=== PATIENT | female | born 1985 | race African-American/Black ===

== ENCOUNTER 2016-05-29 15:06 | Inpatient (IN) ==
[2016-05-29] MEDS ORDERED: ONDANSETRON 4 MG/2 ML VIAL IV PRN ×2 (15:31→19:50)
[2016-05-29] MEDS ORDERED: BUTORPHANOL 2 MG/ML VIAL IV PRN (15:31)
[2016-05-29] MEDS ORDERED: INFLUENZA VIRUS VACCINE 0.5 ML SYRINGE IM ONE (15:35)
[2016-05-29] MEDS: LACTATED RINGERS 1,000 ML IV SCH ×2 (15:40→17:04)
[2016-05-29] MEDS ORDERED: OXYTOCIN/LR 20 UNIT/1,000 ML BAG IV SCH (16:00)
[2016-05-29] MEDS ORDERED: PROMETHAZINE 25 MG/1 ML VIAL IM ONE (16:15)
[2016-05-29] MEDS ORDERED: hydrOXYzine HCL 25 MG/1 ML VIAL IM PRN (16:15)
[2016-05-29] MEDS ORDERED: diphenhydrAMINE 50 MG/1 ML VIAL IV PRN ×2 (16:15)
[2016-05-29] MEDS ORDERED: fentaNYL 2 MCG/ROPIV 0.2% EPID 150 ML EPIDURAL SCH (16:15)
[2016-05-29] MEDS ORDERED: FAMOTIDINE 20 MG/2 ML VIAL IV ONE (16:15)
[2016-05-29] MEDS ORDERED: ePHEDrine 50 MG/ML AMP IV PRN (16:15)
[2016-05-29 16:25] LABS: Basophils % 0.3 % (0.0-0.8); Eosinophils % 0.4 % (0.00-10.9); Hematocrit 31.9 VOL% (35.7-47.0); Hemoglobin 11.3 GM/DL (12.0-16.0); Immature Granulocytes % 2.3 %; Immature Granulocytes Absolute 0.24 #; Lymphocytes # 1.6 10*3/uL (1.4-4.0); Lymphocytes % 15.6 % (21.3-54.2); Mean Corpuscular HGB Conc 35.4 GM/DL (32-36); Mean Corpuscular Hemoglobin 32 PG (27-34); Mean Corpuscular Volume 88.9 FL (87-102); Mean Platelet Volume 10.2 FL (9.6-12.0); Monocytes # 0.8 10*3/uL (0.11-0.8); Monocytes % 7.3 % (1.7-12.7); Neutrophils # 7.8 10*3/uL (1.4-7.4); Neutrophils % 74.1 % (38.7-73.9); Platelet Count 268 10*3/uL (130-400); Red Blood Count 3.59 10*6/uL (3.8-5.5); Red Cell Distribution Width 14.1 % (9.3-17.3); White Blood Count 10.5 10*3/uL (4.5-13.71)
[2016-05-29] MEDS ORDERED: CITRIC ACID/SODIUM CITRATE 30 ML UDCUP PO ONE (16:30)
[2016-05-29 16:53] LABS: Alanine Aminotransferase 13 U/L (13-56); Albumin 2.8 G/DL (3.4-5.0); Alkaline Phosphatase 223 U/L (45-117); Aspartate Amino Transferase 18 U/L (0-37); Bilirubin,Total < 0.39 MG/DL (0.2-1.0); Blood Urea Nitrogen 8 MG/DL (7-18); Calcium 8.7 MG/DL (8.5-10.1); Glucose 89 MG/DL (74-106); Osmolality,Calculated 277.3 MOS/KG (273-304); Potassium 3.9 MMOL/L (3.5-5.1); Sodium 141 MMOL/L (136-145); Total Protein 6.6 G/DL (6.4-8.3); Uric Acid 4.2 MG/DL (2.6-6.0)
[2016-05-29] MEDS ORDERED: LIDOCAINE 1% 50 ML VIAL ONE (19:03)
[2016-05-29] MEDS ORDERED: miSOPROStol 200 MCG TABLET ONE (19:03)
[2016-05-29] MEDS ORDERED: BUTORPHANOL 1 MG/ML VIAL ONE (19:03)
[2016-05-29] MEDS ORDERED: METHYLERGONOVINE 0.2 MG/1 ML AMP ONE (19:04)
[2016-05-29] MEDS ORDERED: ACETAMINOPHEN 325 MG TABLET PO PRN (19:50)
[2016-05-29] MEDS ORDERED: MEASLES/MUMPS/RUBELLA VACCINE 0.5 ML VIAL SUBCUT ONE (19:50)
[2016-05-29] MEDS ORDERED: OXYTOCIN/LR 20 UNIT/1,000 ML BAG IV ONE (19:50)
[2016-05-29] MEDS ORDERED: HYDROCORTISONE 2.5% RECTAL CREAM 30 GM TUBE TOP PRN (19:50)
[2016-05-29] MEDS ORDERED: BISACODYL 10 MG SUPP RECTAL PRN (19:50)
[2016-05-29] MEDS ORDERED: BENZOCAINE 20%/MENTHOL 0.5% SPRAY 56 GM CAN TOP PRN (19:50)
[2016-05-29] MEDS ORDERED: DIPH/TET/ACEL PERT BOOSTER VACCINE 0.5 ML VIAL IM ONE (19:50)
[2016-05-29] MEDS ORDERED: WITCH HAZEL PADS 100/JAR TOP PRN (19:50)
[2016-05-29] MEDS ORDERED: RHO(D) IMMUNE GLOBULIN 300 MCG SYRINGE IM ONE (19:50)
[2016-05-29] MEDS ORDERED: LANOLIN 50% CREAM 0.3 OZ TUBE TOP PRN (19:50)
[2016-05-29] MEDS ORDERED: oxyCODONE/ACETAMINOPHEN 5-325 MG TABLET PO PRN ×2 (19:50)
--- NOTE | 2016-05-29 19:53 | History and Physical Update ---
History and Physical Update - Dictation Physical: refer to scanned H&P - Physical Exam Mental Status: alert and oriented Heart: regular rate and rhythm Lung: clear to auscultation Abdomen: within normal limits Vitals: within normal limits (39 wks for induction. )
--- NOTE | 2016-05-29 20:00 | Discharge Summary ---
Hospital Course - Hospital Course Hospital Course: Pt admitted for induction at 39 wks. She delivered without complication. Discharge Plan - Discharge Data Disposition: Disch To Home/Self Care Condition at Discharge: Stable Discharge Diet: regular diet Activity: other (pelvic rest x 6 wks) Hygiene: may shower Weight Bearing at Discharge: full weight bearing Driving: no restrictions (if not taking narcotics) Contact your physician if you experience:: fever over 101, Difficulty voiding, Redness or swelling, Nausea/Vomiting, Shortness of breath, Bleeding, pain uncontrolled by pain medications - Discharge Medications New Ibuprofen Tab [Motrin Tab] 800 mg PO Q6H PRN #30 tablet PRN Reason: Pain Moderate (4-7) oxyCODONE/ACETAMINOPHEN 5-325 [Percocet 5-325] 1 tablet PO Q6H PRN #30 tablet PRN Reason: Pain Severe (8-10) No Action Pnv No.122/Iron/Folic Acid [ Multi Tablet] 1 tablet PO DAILY Aspirin [Ecotrin] 81 mg PO DAILY - Follow Up or Referral Follow Up: Lissette Castro DO [Physician] - (6 wks) - Forms/Instructions Exam - Constitutional Vitals: Period Temp Pulse Resp BP Sys/Bustillo Pulse Ox Last 24 Hr 98.4 F 85 18 109/56 General appearance: normal weight, no acute distress - Head Head exam: Present: normal inspection, normocephalic - Eye Eye exam: Present: EOMI - Respiratory Respiratory exam: Present: clear to auscultation bilaterally - Cardiovascular Cardiovascular exam: Present: regular rate and rhythm - GI/Abdominal GI/Abdominal exam: Present: soft (fundus firm, nontender) - Extremities Exam Extremities exam: Present: normal inspection - Neurological Exam Neurological exam: Present: alert, oriented X3 - Psychiatric Psychiatric exam: Present: normal affect, normal mood - Skin Skin exam: Present: normal color, warm Discharge Results Procedures and tests throughout hospitalization: Pending Orders 05/30/16 04:00 Comp Blood Count Auto Diff IN AM Labs on day of discharge: Labs from last 24 hours 05/29/16 05/29/16 05/29/16 16:00 16:00 16:00 WBC 10.5 RBC 3.59 L Hgb 11.3 L Hct 31.9 L MCV 88.9 MCH 32 MCHC 35.4 RDW 14.1 Plt Count 268 MPV 10.2 Neut % (Auto) 74.1 H Lymph % (Auto) 15.6 L Duval % (Auto) 7.3 Eos % (Auto) 0.4 Baso % (Auto) 0.3 Neut # (Auto) 7.8 H Lymph # (Auto) 1.6 Duval # (Auto) 0.8 Eos # (Auto) 0.0 Baso # (Auto) 0.0 Immature Gran % 2.3 Nucleated RBC % 0.0 Immature Gran # 0.24 Nucleated RBCs # 0.00 Sodium 141 Potassium 3.9 Chloride 107 Carbon Dioxide 22 Anion Gap 15.9 H BUN 8 Creatinine 0.70 GFR Calculation 141 BUN/Creatinine Ratio 11.00 Glucose 89 Calculated Osmolality 277.3 Uric Acid 4.2 Calcium 8.7 Total Bilirubin < 0.39 AST 18 ALT 13 Alkaline Phosphatase 223 H Total Protein 6.6 Albumin 2.8 L Globulin 3.8 H Albumin/Globulin Ratio 0.7 L Blood Type O POSITIVE Antibody Screen Negative DS: Provider Date of admission: 05/29/16 15:07 Attending physician on admission: Lissette Castro DO Consults: 05/29/16 15:31 Consult to Anesthesiology [CONS] Routine Consulting Provider: Reason for Anesthesiology: Epidural Consult Comment: Epidural for pain managment 05/29/16 19:50 Consult to Material Handler 2Nd Shift [CONS] Routine Consult Material Handler 2Nd Shift: Breast Feeding Discharging clinician: Lissette Castro DO Expected date of discharge: 05/31/16
[2016-05-30] MEDS: IBUPROFEN 800 MG TABLET PO PRN ×2 (02:54→14:07)
[2016-05-30 06:17] LABS: Basophils % 0.2 % (0.0-0.8); Eosinophils % 0.2 % (0.00-10.9); Hematocrit 31.5 VOL% (35.7-47.0); Hemoglobin 10.8 GM/DL (12.0-16.0); Immature Granulocytes % 1.2 %; Immature Granulocytes Absolute 0.16 #; Lymphocytes # 1.8 10*3/uL (1.4-4.0); Lymphocytes % 14.1 % (21.3-54.2); Mean Corpuscular HGB Conc 34.3 GM/DL (32-36); Mean Corpuscular Hemoglobin 30 PG (27-34); Mean Corpuscular Volume 87.5 FL (87-102); Mean Platelet Volume 9.8 FL (9.6-12.0); Monocytes % 7.6 % (1.7-12.7); Neutrophils % 76.7 % (38.7-73.9); Platelet Count 218 10*3/uL (130-400); Red Cell Distribution Width 14.1 % (9.3-17.3)
[2016-05-30] MEDS: DOCUSATE SODIUM 100 MG CAPSULE PO SCH ×3 (11:08→21:00)
[2016-05-31] MEDS: IBUPROFEN 800 MG TABLET PO PRN (03:45)
[2016-05-31 08:30] VITALS: BP 122/63
[2016-05-31] MEDS: DOCUSATE SODIUM 100 MG CAPSULE PO SCH (09:41)
--- NOTE | 2016-06-02 11:47 | Pathology Report from [facility] ---
ACCESSION # : [id number] PATIENT NAME : Coreen Edouard. ORDERING DR : ASHTYN GRIFFITHS CLINICAL HX: IUP @ 39.1 wks gestation, HX of recurrent spontaneous abortions POST-OP DX: Same SPECIMEN INFO: Placenta GROSS DESCRIPTION: Received fresh labeled with the patient's name and consists of a 424 gram placenta which measures 16.1 x 18.0 cm x up to 2.5 cm. membranes are pink-kc, translucent. The umbilical cord is pericentrally inserted, appears to have slight meconium staining present, contains three vessels and measures 38.1 cm and has thrombosed blood at the distal end. The surface is blue-martinez. There is subchorionic fibrin measuring up to 1.5 cm. The maternal surface is hemorrhagic with adherent clotted with mildly disrupted cotyledons. Sectioning shows no gross abnormalities. Sections submitted: A membranes and cord, B and maternal surfaces. DIAGNOSIS FOR COREEN EDOUARD: PLACENTA, MEMBRANES, UMBILICAL CORD: Focal placental infarction with dystrophic calcification, attached blood, mild intervillous blood. Tri-vessel umbilical cord, pericentrally inserted. Membranes with acute and chronic inflammation and attached blood. SERVICE DATE: 05/30/2016 REPORT DATE: 06/02/2016 PATHOLOGIST: Andi Cho
== END 2016-05-31 13:45 | disposition home or self-care (01) | DRG 775 ==
LOC: N.LDOUT 15:06 → N.LD 15:07 → N.OB 05-30 10:59
PROVIDERS: ADMIT Obstetrics & Gynecology; ATTEND Obstetrics & Gynecology